=== PATIENT | female | born 1950 | race Two or more races ===

== ENCOUNTER 2018-11-16 07:52 | Observation (INO) | payer OTHER ==
[2018-11-16] MEDS ORDERED: ASPIRIN 81 MG CHEWABLE TAB PO ONE (08:30)
[2018-11-16] MEDS ORDERED: ASPIRIN 81 MG CHEWABLE TAB ONE (08:30)
--- NOTE | 2018-11-16 08:34 | EDPHY ---
H & P Stated Complaint: back pain and chest pain and Time Seen by Provider: 11/16/18 08:18 HPI/ROS: CHIEF COMPLAINT: Chest pain and back pain HISTORY OF PRESENT ILLNESS: 68-year-old female visiting from [place], here for the last month, presents emergency department reporting that she had pain between her shoulder blades which started yesterday. No clear exacerbating or relieving factors. Her daughter gave her massage was seem to make it feel somewhat better. Around 07 19 last night she developed some anterior chest discomfort reporting heavy pressure-like sensation. She also notes that she has been feeling somewhat tired and weak and slightly nauseous. No vomiting. Decreased appetite. Chest discomfort has been waxing and waning through the night. No radiation into the jaw or arms. No known history of coronary artery disease. Patient does have a history of hypertension, hypercholesterolemia, and has a stent placed in the left femoral artery per her history. She is on clopidogrel. Unclear if she has history of DVTs or PEs; she reports she had multiple "dry" clots in her groin which led to the stent placement. Denies infectious symptoms. No fevers or chills, no cough, runny nose, no urinary complaints, headache, or lightheadedness. REVIEW OF SYSTEMS: A comprehensive 10 system review of systems was reviewed and is otherwise negative aside from elements mentioned in the history of present illness and medical decision making. PAST MEDICAL HISTORY: Hypertension, hypothyroidism, hypercholesterolemia, anxiety, left femoral groin stent. Patient takes hydrochlorothiazide, metoprolol, lisinopril, simvastatin, levothyroxine, clopidogrel. SOCIAL HISTORY: Remote smoking history. Visiting from [place]. Has been here for month. VITAL SIGNS Reviewed by me. GENERAL: Well-developed, well-nourished, reports back pain is 5/10. Denies anterior chest pain at this time. HEENT: Atraumatic. Eyes: No icterus, no injection. Mouth: moist mucous membranes. No erythema or lesions. Neck: supple with no adenopathy. LUNGS: Clear to auscultation bilaterally, no wheezes, rhonchi or rales. CARDIAC: Regular rate and rhythm, no rubs, murmurs or gallops. ABDOMEN: Soft, nontender, nondistended, bowel sounds normal. BACK: No CVA tenderness. EXTREMITIES: No trauma. Trace edema at the ankles. Range of motion is normal throughout. NEURO: Alert and oriented, grossly nonfocal. SKIN: Warm and dry, no rash. PSYCHIATRIC: Normal mentation, no agitation. - Personal History Current Tetanus/Diphtheria Vaccine: Unsure Current Tetanus Diphtheria and Acellular Pertussis (TDAP): Unsure - Medical/Surgical History Hx Asthma: No Hx Chronic Respiratory Disease: No Hx Diabetes: No Hx Cardiac Disease: No Hx Renal Disease: No Hx Cirrhosis: No Hx Alcoholism: No Hx HIV/AIDS: No Hx Splenectomy or Spleen Trauma: No Other PMH: femoral vascular stent 2014 for clots and taking blood thinners. nile years ago - Social History Smoking Status: Former smoker Constitutional: Initial Vital Signs Temperature (C) 36.9 C 11/16/18 08:00 Heart Rate 65 11/16/18 08:00 Respiratory Rate 18 11/16/18 08:00 Blood Pressure 168/94 H 11/16/18 08:00 O2 Sat (%) 95 11/16/18 08:00 O2 Delivery Mode Room Air Allergies/Adverse Reactions: levofloxacin [From Levaquin] Allergy (Verified 11/16/18 08:06) Home Medications: Medication Instructions Recorded ALPRAZolam [Xanax 0.25 MG (*)] 0.25 mg PO DAILY PRN 11/16/18 Clopidogrel Bisulfate [Plavix (*)] 75 mg PO HS 11/16/18 Hydrochlorothiazide [HCTZ (*)] 25 mg PO DAILY 11/16/18 Ibuprofen [Motrin (*)] 600 mg PO Q8H PRN 11/16/18 Levothyroxine [Synthroid 100 mcg 100 mcg PO DAILY 11/16/18 (*)] Lisinopril [Zestril 20 mg (*)] 20 mg PO BID 11/16/18 Metoprolol Succinate Xr [Toprol Xl 25 mg PO HS 11/16/18 25 mg (*)] Simvastatin [Zocor] 10 mg PO HS 11/16/18 Medical Decision Making - Diagnostics EKG Interpretation: 12-LEAD EKG: Please see the full report in [facility]. My interpretation: Normal sinus rhythm no ST or T-wave changes Imaging Results: Imaging Impressions Chest X-Ray 11/16/18 08:30 Impression: Query airways disease. ED Course/Re-evaluation: IV established. Patient received aspirin 324 mg by mouth. Bedside troponin was ordered. Labs and chest x-ray ordered. EKG is nonischemic. Patient's troponin was negative. Chest x-ray does not demonstrate clear etiology of the patient's symptoms. Normal mediastinum. Patient has had a cholecystectomy, has no upper abdominal discomfort. On re-examination she states that burping seem to relieve her chest discomfort. Lipase was ordered. This was normal. GI cocktail was administered. Discussed with the patient the multiple risk factors for coronary artery disease the unknown clear alternative diagnosis. Patient had a stress test about a year ago. We will meet the patient to the hospital for further evaluation. Remains a bit confusing to me the patient actually had a cardiac catheterization done from the left groin that resulted in a cardiac stentor is she actually had a femoral artery stent placed. Course was discussed with the hospitalist service. Dr. Giang admitting physician. Differential Diagnosis: After history and physical examination, the differential for chest pain was considered, including but not limited to, myocardial ischemia, acute coronary syndrome, pulmonary embolus, gastrointestinal causes, chest wall pain, aortic dissection, pleural inflammation and pulmonary infectious causes. Consult/Admit Bed [facility]: [facility] - Data Points Laboratory Results: Laboratory Results 11/16/18 08:20 11/16/18 08:20 11/16/18 11/16/18 11/16/18 08:27 08:20 08:20 WBC RBC Hgb Hct MCV MCH MCHC RDW Plt Count MPV Neut % (Auto) Lymph % (Auto) Story % (Auto) Eos % (Auto) Baso % (Auto) Nucleat RBC Rel Count Absolute Neuts (auto) Absolute Lymphs (auto) Absolute Monos (auto) Absolute Eos (auto) Absolute Basos (auto) Absolute Nucleated RBC Immature Gran % Immature Gran # PT INR APTT D-Dimer Sodium 139 mEq/L mEq/L (135-145) Potassium 3.4 mEq/L L mEq/L (3.5-5.2) Chloride 100 mEq/L mEq/L (97-110) Carbon Dioxide 29 mEq/l mEq/l (22-31) Anion Gap 10 mEq/L mEq/L (6-14) BUN 17 mg/dL mg/dL (7-23) Creatinine 0.9 mg/dL mg/dL (0.6-1.0) Estimated GFR > 60 Glucose 103 mg/dL H mg/dL (70-100) Calcium 9.6 mg/dL mg/dL (8.5-10.4) Total Bilirubin 0.9 mg/dL mg/dL (0.1-1.4) Conjugated Bilirubin 0.4 mg/dL mg/dL (0.0-0.5) Unconjugated Bilirubin 0.5 mg/dL mg/dL (0.0-1.1) AST 23 IU/L IU/L (14-46) ALT 23 IU/L IU/L (9-52) Alkaline Phosphatase 75 IU/L IU/L (38-126) POC Troponin I 0.01 ng/mL ng/mL (0.00-0.08) NT-Pro-B Natriuret Pep 116 pg/mL pg/mL (0-125) Total Protein 8.0 g/dL g/dL (6.3-8.2) Albumin 4.5 g/dL g/dL (3.5-5.0) Lipase 142 IU/L IU/L (23-300) 11/16/18 11/16/18 08:20 08:20 WBC 7.42 10^3/uL 10^3/uL (3.80-9.50) RBC 4.89 10^6/uL 10^6/uL (4.18-5.33) Hgb 14.9 g/dL g/dL (12.6-16.3) Hct 44.0 % % (38.0-47.0) MCV 90.0 fL fL (81.5-99.8) MCH 30.5 pg pg (27.9-34.1) MCHC 33.9 g/dL g/dL (32.4-36.7) RDW 12.0 % % (11.5-15.2) Plt Count 275 10^3/uL 10^3/uL (150-400) MPV 9.3 fL fL (8.7-11.7) Neut % (Auto) 73.3 % % (39.3-74.2) Lymph % (Auto) 16.0 % % (15.0-45.0) Story % (Auto) 8.8 % % (4.5-13.0) Eos % (Auto) 1.3 % % (0.6-7.6) Baso % (Auto) 0.3 % % (0.3-1.7) Nucleat RBC Rel Count 0.0 % % (0.0-0.2) Absolute Neuts (auto) 5.44 10^3/uL 10^3/uL (1.70-6.50) Absolute Lymphs (auto) 1.19 10^3/uL 10^3/uL (1.00-3.00) Absolute Monos (auto) 0.65 10^3/uL 10^3/uL (0.30-0.80) Absolute Eos (auto) 0.10 10^3/uL 10^3/uL (0.03-0.40) Absolute Basos (auto) 0.02 10^3/uL 10^3/uL (0.02-0.10) Absolute Nucleated RBC 0.00 10^3/uL 10^3/uL (0-0.01) Immature Gran % 0.3 % % (0.0-1.1) Immature Gran # 0.02 10^3/uL 10^3/uL (0.00-0.10) PT 12.8 SEC SEC (12.0-15.0) INR 1.00 (0.83-1.16) APTT 27.3 SEC SEC (23.0-38.0) D-Dimer 0.36 ug/mLFEU ug/mLFEU (0.00-0.50) Sodium Potassium Chloride Carbon Dioxide Anion Gap BUN Creatinine Estimated GFR Glucose Calcium Total Bilirubin Conjugated Bilirubin Unconjugated Bilirubin AST ALT Alkaline Phosphatase POC Troponin I NT-Pro-B Natriuret Pep Total Protein Albumin Lipase Medications Given: Discontinued Medications Al Hydroxide/Mg Hydroxide (Maalox Susp) 30 ml PO ONCE ONE Stop: 11/16/18 09:31 Last Admin: 11/16/18 09:48 Dose: 30 ml Aspirin (Aspirin) 324 mg PO EDNOW ONE Stop: 11/16/18 08:31 Last Admin: 11/16/18 08:32 Dose: 324 mg Hyoscyamine Sulfate (Levsin, Hyomax-Sl) 0.25 mg PO ONCE ONE Stop: 11/16/18 09:31 Last Admin: 11/16/18 09:48 Dose: 0.25 mg Lidocaine (Lidocaine 2% Viscous) 15 ml PO ONCE ONE Stop: 11/16/18 09:31 Last Admin: 11/16/18 09:48 Dose: 15 ml Pantoprazole Sodium (Protonix) 40 mg IVP EDNOW ONE Stop: 11/16/18 09:31 Last Admin: 11/16/18 09:48 Dose: 40 mg Point of Care Test Results: Chemistry 11/16/18 08:27 POC Troponin I 0.01 ng/mL ng/mL (0.00-0.08) Departure - Departure Disposition: [facility] Inpatient Acute Clinical Impression: Chest pain, thoracic posterior pain Condition: Fair
[2018-11-16 08:37] LABS: PLATELET COUNT 275 10^3/uL (150-400)
[2018-11-16 08:44] LABS: PROTIME(PATIENT) 12.8 SEC (12.0-15.0)
[2018-11-16] MEDS ORDERED: PANTOPRAZOLE SODIUM 40 MG VIAL IVP ONE (09:30)
[2018-11-16] MEDS ORDERED: LIDOCAINE 2% VISCOUS 15 ML UDCUP PO ONE (09:30)
[2018-11-16] MEDS ORDERED: HYOSCYAMINE SULFATE 0.125 MG TAB PO ONE (09:30)
[2018-11-16] MEDS ORDERED: MAG HYDROX/AL HYDROX/SIMETH 30 ML UDCUP PO ONE (09:30)
[2018-11-16] MEDS ORDERED: NITROGLYCERIN 0.4 MG BTL SL PRN (11:58)
[2018-11-16] MEDS ORDERED: ONDANSETRON 4 MG/2 ML VIAL IVP PRN (11:58)
[2018-11-16] MEDS ORDERED: ACETAMINOPHEN 325 MG TAB PO PRN (11:58)
[2018-11-16] MEDS ORDERED: ALPRAZolam 0.25 MG TAB PO PRN (12:05)
--- NOTE | 2018-11-16 12:33 | PDGENHP ---
History and Physical - Chief Complaint chest discomfort - History of Present Illness 68yo F with history of peripheral vascular disease s/p femoral stent, HTN, HLD presents with chest discomfort. She first noticed some discomfort between her shoulder blades 2 days ago. Then last night she developed chest pressure. This was associated with shortness of breath and some nausea. It did not radiate. It is mildly pleuritic but not exertional. Her chest is not tender to palpation. No recent cough or fevers/chills. No palpitations or dizziness. This chest pressure has waxed and waned and is currently resolved. She did get some relief from GI cocktail in the ED. She has a non-ischemic ECG and negative POC troponin. SHe is being admitted for further evaluation. Of note, she has not prior cardiac history. She reports having a nuclear stress test approximately 1 year ago for "surveillance." This was reportedly normal. History Information - Allergies/Home Medication List Allergies/Adverse Reactions: levofloxacin [From LevFitViauin] Allergy (Verified 11/16/18 08:06) Home Medications: ALPRAZolam [Xanax 0.25 MG (*)] 0.25 mg PO DAILY PRN 11/16/18 [Last Taken ] Clopidogrel Bisulfate [Plavix (*)] 75 mg PO HS 11/16/18 [Last Taken Unknown] Hydrochlorothiazide [HCTZ (*)] 25 mg PO DAILY 11/16/18 [Last Taken Unknown] Ibuprofen [Motrin (*)] 600 mg PO Q8H PRN 11/16/18 [Last Taken 11/15/18] Levothyroxine [Synthroid 100 mcg (*)] 100 mcg PO DAILY 11/16/18 [Last Taken Unknown] Lisinopril [Zestril 20 mg (*)] 20 mg PO BID 11/16/18 [Last Taken Unknown] Metoprolol Succinate Xr [Toprol Xl 25 mg (*)] 25 mg PO HS 11/16/18 [Last Taken Unknown] Simvastatin [Zocor] 10 mg PO HS 11/16/18 [Last Taken Unknown] I have personally reviewed and updated: family history, medical history, social history, surgical history - Past Medical History Additional medical history: peripheral vascular disease with femoral stent, HTN , HLD, hypothyroidism, anxiety, left spontaneous pneumothorax - Surgical History Additional surgical history: femoral stent placement, x2, cholecystectomy - Family History Additional family history: No family history of CAD. - Social History Smoking Status: Former smoker (quit decades ago) Alcohol Use: None Drug Use: None Additional social history: Lives in [place]. Has been visiting her daughter here in [place] since early October. Was supposed to fly back to [place] today. Review of Systems Review of Systems: ROS: 10pt was reviewed & negative except for what was stated in HPI & below Physical Exam Physical Exam: Temp Pulse Resp BP Pulse Ox 36.7 C 61 12 121/7 H 93 11/16/18 11:31 11/16/18 11:31 11/16/18 11:31 11/16/18 11:31 11/16/18 11:31 Constitutional: no apparent distress, appears nourished, not in pain Eyes: PERRL, anicteric sclera, EOMI Ears, Nose, Mouth, Throat: moist mucous membranes, hearing normal, ears appear normal, no oral mucosal ulcers Cardiovascular: regular rate and rhythym, no murmur, rub, or gallop, No edema Respiratory: no respiratory distress, no rales or rhonchi, clear to auscultation Gastrointestinal: normoactive bowel sounds, soft, non-tender abdomen, no palpable masses Genitourinary: no bladder fullness, no bladder tenderness Skin: warm, normal color, no rashes or abrasions, no fluctuance, no induration, No mottled Musculoskeletal: full muscle strength, no muscle tenderness, normal joint ROM, no joint effusions Neurologic: AAOx3 Psychiatric: interacting appropriately, not anxious, not encephalopathic, thought process linear Lab Data & Imaging Review 11/16/18 08:20 11/16/18 08:20 WBC 7.42 10^3/uL (3.80-9.50) 11/16/18 08:20 RBC 4.89 10^6/uL (4.18-5.33) 11/16/18 08:20 Hgb 14.9 g/dL (12.6-16.3) 11/16/18 08:20 Hct 44.0 % (38.0-47.0) 11/16/18 08:20 MCV 90.0 fL (81.5-99.8) 11/16/18 08:20 MCH 30.5 pg (27.9-34.1) 11/16/18 08:20 MCHC 33.9 g/dL (32.4-36.7) 11/16/18 08:20 RDW 12.0 % (11.5-15.2) 11/16/18 08:20 Plt Count 275 10^3/uL (150-400) 11/16/18 08:20 MPV 9.3 fL (8.7-11.7) 11/16/18 08:20 Neut % (Auto) 73.3 % (39.3-74.2) 11/16/18 08:20 Lymph % (Auto) 16.0 % (15.0-45.0) 11/16/18 08:20 Love % (Auto) 8.8 % (4.5-13.0) 11/16/18 08:20 Eos % (Auto) 1.3 % (0.6-7.6) 11/16/18 08:20 Baso % (Auto) 0.3 % (0.3-1.7) 11/16/18 08:20 Nucleat RBC Rel Count 0.0 % (0.0-0.2) 11/16/18 08:20 Absolute Neuts (auto) 5.44 10^3/uL (1.70-6.50) 11/16/18 08:20 Absolute Lymphs (auto) 1.19 10^3/uL (1.00-3.00) 11/16/18 08:20 Absolute Monos (auto) 0.65 10^3/uL (0.30-0.80) 11/16/18 08:20 Absolute Eos (auto) 0.10 10^3/uL (0.03-0.40) 11/16/18 08:20 Absolute Basos (auto) 0.02 10^3/uL (0.02-0.10) 11/16/18 08:20 Absolute Nucleated RBC 0.00 10^3/uL (0-0.01) 11/16/18 08:20 Immature Gran % 0.3 % (0.0-1.1) 11/16/18 08:20 Immature Gran # 0.02 10^3/uL (0.00-0.10) 11/16/18 08:20 PT 12.8 SEC (12.0-15.0) 11/16/18 08:20 INR 1.00 (0.83-1.16) 11/16/18 08:20 APTT 27.3 SEC (23.0-38.0) 11/16/18 08:20 D-Dimer 0.36 ug/mLFEU (0.00-0.50) 11/16/18 08:20 Sodium 139 mEq/L (135-145) 11/16/18 08:20 Potassium 3.4 mEq/L (3.5-5.2) L 11/16/18 08:20 Chloride 100 mEq/L (97-110) 11/16/18 08:20 Carbon Dioxide 29 mEq/l (22-31) 11/16/18 08:20 Anion Gap 10 mEq/L (6-14) 11/16/18 08:20 BUN 17 mg/dL (7-23) 11/16/18 08:20 Creatinine 0.9 mg/dL (0.6-1.0) 11/16/18 08:20 Estimated GFR > 60 11/16/18 08:20 Glucose 103 mg/dL (70-100) H 11/16/18 08:20 Calcium 9.6 mg/dL (8.5-10.4) 11/16/18 08:20 Total Bilirubin 0.9 mg/dL (0.1-1.4) 11/16/18 08:20 Conjugated Bilirubin 0.4 mg/dL (0.0-0.5) 11/16/18 08:20 Unconjugated Bilirubin 0.5 mg/dL (0.0-1.1) 11/16/18 08:20 AST 23 IU/L (14-46) 11/16/18 08:20 ALT 23 IU/L (9-52) 11/16/18 08:20 Alkaline Phosphatase 75 IU/L (38-126) 11/16/18 08:20 POC Troponin I 0.01 ng/mL (0.00-0.08) 11/16/18 08:27 NT-Pro-B Natriuret Pep 116 pg/mL (0-125) 11/16/18 08:20 Total Protein 8.0 g/dL (6.3-8.2) 11/16/18 08:20 Albumin 4.5 g/dL (3.5-5.0) 11/16/18 08:20 Lipase 142 IU/L (23-300) 11/16/18 08:20 Interpretation: CXR: no focal infiltrate or effusion, normal heart size, no pulmonary edema (reviewed by me) EKG additional interpertation: ECG: normal sinus rhythm, borderline left axis deviation, no right heart strain, good R wave progression, no ST-T segment changes (reviewed by me) Assessment & Plan Assessment: 68yo F with history of peripheral vascular disease s/p femoral stent, HTN, HLD presents with chest discomfort. Plan: #Chest pressure: Atypical. Initial trop/ecg negative for ischemia. She has several risk factors for cardiovascular disease. HEART score of 5 indicating further inpatient work up. GI etiology possible as sxs did improved with GI cocktail. - Check d-dimer - Serial troponin/ecg - Telemetry - I have ordered treadmill stress with NM imaging if above remains negative #Peripheral vascular disease s/p femoral arterial stent in 2015: Continue plavix , statin #HTN: BP ok. Continue home metoprolol, lisinopril, hctz #HLD: On statin. #Hypothyroidism: Continue LT4 replacement. #Anxiety: Home xanax. VTE ppx: low risk, ambulate Code: full Diet: cardiac Dispo: admit under observation
--- NOTE | 2018-11-16 15:35 | CPEKG ---
Test Reason : OPEN Blood Pressure : / mmHG Vent. Rate : 062 BPM Atrial Rate : 062 BPM P-R Int : 148 ms QRS Dur : 097 ms QT Int : 433 ms P-R-T Axes : 031 -67 020 degrees QTc Int : 440 ms Sinus rhythm LAD, consider left anterior fascicular block Confirmed by Willow Delgadillo ([id number]) on 11/16/2018 3:35:24 PM Referred By: Willow Delgadillo Confirmed By:Willow Delgadillo
[2018-11-16] MEDS ORDERED: PRAVASTATIN SODIUM 20 MG TAB PO SCH (21:00)
[2018-11-16] MEDS ORDERED: METOPROLOL SUCCINATE XR 25 MG TAB PO SCH (21:00)
[2018-11-16] MEDS ORDERED: CLOPIDOGREL BISULFATE 75 MG TAB PO SCH (21:00)
[2018-11-16] MEDS: LISINOPRIL 20 MG TAB PO SCH (21:20)
[2018-11-17] MEDS ORDERED: LEVOTHYROXINE 100 MCG TAB PO SCH (09:00)
[2018-11-17] MEDS ORDERED: HYDROCHLOROTHIAZIDE 25 MG TAB PO SCH (09:00)
[2018-11-17 09:09] VITALS: BP 117/72
--- NOTE | 2018-11-17 11:29 | PDDCSUM ---
Discharge Summary Discharge Summary: Date of Admission: 11/16/2018 Date of Discharge: 11/17/2018 Discharge Diagnoses: 1. Chest pain, low suspicion for cardiac etiology 2. Peripheral vascular disease 3. HTN 4. HLD 5. Hypothyroidism 6. Anxiety Brief Hospital Course: 68yo F with history of peripheral vascular disease s/p femoral stent in 2014, HTN, HLD presented with chest discomfort. She first noticed some discomfort between her shoulder blades 2 days ago. Then last night she developed chest pressure. This was associated with shortness of breath and some nausea. It was not exertional. No recent infectious symptoms. Serial troponin markers and ECGs were negative for ischemia or injury. Telemetry remained quiet. D-dimer was negative making PE very unlikely. We did consider cardiac stress testing but patient reports having a normal stress test with MPI within the last 12 months; thus, stress testing was deferred. We did request these records for our EMR. She was continued on her plavix, statin, and beta ken. Of note, her symptoms improved with GI cocktail and I suspect may be GI related. Medications: Please refer to EMR for complete list. No changes were made this admission. Follow Up Plan: Patient instructed to see her PCP Dr Frank Tatum when she gets back home to [place]. Physical Exam: Vitals and telemetry reviewed, no arrhyhmias. Alert and oriented , rrr without murmur, lungs clear, abdomen soft, no leg edema or JVD.
[2018-11-17] MEDS: LISINOPRIL 20 MG TAB PO SCH (11:30)
--- NOTE | 2018-11-17 11:39 | ASMTCASEMG ---
Living Arrangements What is your living Answers: Alone arrangement? Who do you live with? Type Of Residence What kind of residence do Answers: House you live in? Type of Residence Facility Name Notes: Patient lives in [place] and has been visiting her daughter here in [place]. Discharge Plan Comments Coordination Status Comments Notes: Patient is a 68yo female with a hx of perpheral vascular disease who comes to [facility] for chest pain. She is being admitted OBS for chest pressure, perpheral vascular disease, HLD, HTN, hypothyroidism, anxiety. No orders for therapies at this time. Patient will likely d/c independent to return to [place]. Patient has been here in [place] visiting her daughter. CM available if d/c needs arise. Date Signed: 11/17/2018 10:55 AM Electronically Signed By:Vaishnavi Holder LCSW
--- NOTE | 2018-11-17 11:47 | ASMTLACE ---
LACE Length of stay for Answers: 1 day current admission Acuity / Level of Answers: No Care: Did the patient have an inpatient admission? Comorbidities - select Answers: Other Notes: peripheral vascular all that apply disease # of Emergency department Answers: 1-2 visits in the last 6 months Score: 3 Date Signed: 11/17/2018 11:31 AM Electronically Signed By:Vaishnavi Holder LCSW
== END 2018-11-17 12:31 | disposition home or self-care (01) ==
LOC: F2W 11:20
PROVIDERS: ADMIT Internal Medicine; ATTEND Internal Medicine
DX: R07.9 Chest pain, unspecified (principal); I73.9 Peripheral vascular disease, unspecified; I10 Essential (primary) hypertension; E78.5 Hyperlipidemia, unspecified; E03.9 Hypothyroidism, unspecified; F41.9 Anxiety disorder, unspecified; Z79.02 Long term (current) use of antithrombotics/antiplatelets; Z87.891 Personal history of nicotine dependence; Z95.828 Presence of other vascular implants and grafts
CPT/HCPCS: 71046; 93005; 96374; 99285; G0378; 84484-ER